=== PATIENT | male | born 1960 | race Caucasian/White ===

== ENCOUNTER 2017-04-16 17:29 | Emergency (ER) | payer SELFPAY ==
[~2017-04-16] VITALS: Ht 185.4 cm; Wt 102.1 kg
[2017-04-16 17:32] VITALS: BP 130/75
--- NOTE | 2017-04-16 17:45 | NUR ---
Patient to ed-lobby by EMS at this time.
[2017-04-16] MEDS ORDERED: NACL 0.9% 1,000 ML IV ONE (17:55)
--- NOTE | 2017-04-16 17:59 | NUR ---
Patient to bed 6 at this time.
--- NOTE | 2017-04-16 18:00 | NUR ---
PT BIBA AFTER BEING FOUND ON SIDEWALK W/C/O GENERAL WEAKNESS;PT DENIES ANY MEDICAL HX.PT STATES "I'M HOMELESS AND I HAVENT EAT FOR DAYS GUSTAVO'S WHY I FEEL WEAK". DENIES N/V/D; SKIN IS PINK/WARM/DRY; AAOX4 WITH EVEN AND STEADY GAIT; LUNGS CLEAR BL; HR EVEN AND REGULAR; PT DENIES ANY FEVER, CP, SOB, OR COUGH AT THIS TIME; PATIENT STATES PAIN OF 0/10 AT THIS TIME; PATIENT POSITIONED FOR COMFORT; HOB ELEVATED; BEDRAILS UP X2; BED DOWN. ER MD MADE AWARE OF PT STATUS.
[2017-04-16 18:14] LABS: BASOPHILS # (AUTO) 0.2 K/uL (0.00-0.22); EOSINOPHILS # (AUTO) 0.1 K/uL (0-0.4); HEMATOCRIT 38.8 % (36-52); HEMOGLOBIN 12.8 g/dL (12.0-18.0); LYMPHOCYTES # (AUTO) 1.9 K/uL (2.0-11.5); MEAN CORPUSCULAR HEMOGLOBIN 30 pg (27-31); MEAN CORPUSCULAR HGB CONC 33 g/dL (33-37); MEAN CORPUSCULAR VOLUME 90 fL (80-94); MONOCYTES # (AUTO) 0.5 K/uL (0.8-1.0); NEUTROPHILS # (AUTO) 4.4 K/uL (1.8-7.7); PLATELET COUNT (AUTO) 273 K/uL (140-450); RED BLOOD CELL COUNT(AUTO) 4.34 MIL/uL (4.20-6.10); RED CELL DISTRIBUTION WIDTH 13.9 % (11.6-13.7); WHITE BLOOD COUNT (AUTO) 7.1 K/uL (4.8-10.8)
[2017-04-16 18:26] LABS: PROTHROMBIN TIME 10.9 secs (10.8-13.4)
[2017-04-16 18:28] LABS: ALBUMIN 3.9 g/dL (3.4-5.0); AMYLASE 40 U/L (25-115); ANION GAP 7.3 (8-16); ASPARTATE AMINOTRANSFERASE 30 U/L (15-37); CARBON DIOXIDE 30.4 mmol/L (21-32); CHLORIDE 103 mmol/L (98-107); GFR ARICAN-AMERICAN 99 mL/min (>90); GLUCOSE 82 mg/dL (74-106); LIPASE 173 U/L (73-393); MAGNESIUM 1.8 mg/dL (1.8-2.4); POTASSIUM 3.7 mmol/L (3.5-5.1); SODIUM SERUM 137 mmol/L (136-145); TOTAL BILIRUBIN 1.3 mg/dL (0.0-1.0); UREA NITROGEN, BLOOD 11 mg/dL (7-18)
[2017-04-16 18:31] LABS: APPEARANCE,URINE CLEAR (CLEAR); BILIRUBIN,URINE NEGATIVE (NEGATIVE); BLOOD, URINE 1+ (NEGATIVE); COLOR,URINE YELLOW (YELLOW); LEUKOCYTE ESTERASE ,URINE NEGATIVE (NEGATIVE); NITRITE, URINE NEGATIVE (NEGATIVE); PH,URINE 6.5 (5.0-9.0); UGLUCOSE NEGATIVE (NEGATIVE)
[2017-04-16 18:39] LABS: BARBITURATE, URINE NEG. ng/ml (NEG <=200); BENZODIAZEPINE, URINE NEG. ng/mL (NEG <=200); CANNABINOID, URINE NEG. ng/mL (NEG <=50); COCAINE, URINE NEG. ng/mL (NEG <=300); OPIATE, URINE NEG. ng/mL (NEG <=2000); PHENCYCLIDINE SCREEN,URINE NEG. ng/mL (NEG <=25)
[2017-04-16 18:43] LABS: RBC,URINE 3-10 (FEW) /HPF (0-5); WBC,URINE 0-5 (RARE) /HPF (0-5)
--- NOTE | 2017-04-16 19:21 | NUR ---
Pt report given to SMITHA CHEEMA AND ANETTE LAWRENCE. Transfer of care at this time.
[2017-04-16 19:31] VITALS: BP 124/68
--- NOTE | 2017-04-16 19:31 | NUR ---
Patient discharged with v/s stable. Written and verbal after care instructions given and explained. Patient verbalized understanding. Ambulatory with steady gait. All questions addressed prior to discharge. Advised to follow up with PMD. HOMELESS PACKET PROVIDED. IV removed, catheter intact and site benign. Applied folded 4x4 gauze and tape to stop bleeding.
== END 2017-04-16 19:31 | disposition home or self-care (01) ==
LOC: MED 17:29
DX: R53.1 Weakness (principal)
CPT/HCPCS: 36415; 70450; 71010; 80053; 80305; 81001; 82150; 83690; 83735; 84484; 85025; 85610; 85730; 93005; 96360; 99285; G0482; J7030; Q0092